=== PATIENT | female | born 1965 | race Hispanic/Latino ===

== ENCOUNTER 2024-04-01 12:15 | Emergency (ER) | payer MEDICAID, OTHER ==
[~2024-04-01] VITALS: Ht 149.9 cm; Wt 81.6 kg
[2024-04-01 12:48] LABS: BASOPHILS # (AUTO) 0.03 K/uL (0.00-0.20); BASOPHILS % (AUTO) 0.3 % (0.0-5.0); EOSINOPHILS # (AUTO) 0.04 K/uL (0.00-0.70); EOSINOPHILS % (AUTO) 0.4 % (0.0-8.0); HEMATOCRIT 35.3 % (36-48); IMMATURE GRANULOCYTE ABSOLUTE 0.03 K/uL (0-1); LYMPHOCYTES # (AUTO) 1.7 K/uL (1.0-4.8); LYMPHOCYTES % (AUTO) 18.8 % (21.0-51.0); MEAN CORPUSCULAR HEMOGLOBIN 29.8 pg (27.0-33.0); MEAN CORPUSCULAR HGB CONC 33.7 g/dL (32.0-36.0); MEAN CORPUSCULAR VOLUME 88.5 fL (79-99); MONOCYTES # (AUTO) 0.4 K/uL (0.1-1.0); MONOCYTES % (AUTO) 4.9 % (3.0-13.0); NEUTROPHILS # (AUTO) 6.7 K/uL (1.8-7.7); NEUTROPHILS % (AUTO) 75.3 % (40.0-77.0); PLATELET COUNT (AUTO) 158 K/uL (130-400); RED BLOOD CELL COUNT(AUTO) 3.99 MIL/uL (4.00-5.50); RED CELL DISTRIBUTION WIDTH 13.7 % (11.0-15.5); WHITE BLOOD COUNT (AUTO) 8.9 K/uL (4.8-10.8)
[2024-04-01 12:57] LABS: CREATININE 0.9 mg/dL (0.5-1.0); MAGNESIUM 1.1 mg/dL (1.80-2.40); POTASSIUM 3.8 mmol/L (3.5-5.1)
[2024-04-01] MEDS: acetaMINOPHEN 500 MG TABLET PO ONE (12:59)
[2024-04-01] MEDS: ketOROlac 60 MG VIAL (30MG/ML) IM ONE (13:00)
[2024-04-01 16:27] VITALS: BP 157/76; PULSE 88; RESP 16; TEMP 98.4; O2SAT 98
== END 2024-04-01 17:07 | disposition home or self-care (01) ==
LOC: EDH 12:15
DX: S13.4XXA Sprain of ligaments of cervical spine, initial encounter (principal); S00.03XA Contusion of scalp, initial encounter; S70.01XA Contusion of right hip, initial encounter; S80.01XA Contusion of right knee, initial encounter; E86.0 Dehydration; E11.65 Type 2 diabetes mellitus with hyperglycemia; F41.9 Anxiety disorder, unspecified; F32.A Depression, unspecified; E11.9 Type 2 diabetes mellitus without complications; K21.9 Gastro-esophageal reflux disease without esophagitis; F20.9 Schizophrenia, unspecified; Z88.8 Allergy status to other drugs, medicaments and biological substances; W18.39XA Other fall on same level, initial encounter; Y93.89 Activity, other specified; Y92.89 Other specified places as the place of occurrence of the external cause; Y99.8 Other external cause status
CPT/HCPCS: 99285; 70450; 83735; 84484; 80048; 85025; 36415; 73562; 72100; 72170; 72125; 96372; 93005; J1885

== ENCOUNTER 2024-04-02 10:48 | Emergency (ER) | payer MEDICAID ==
[~2024-04-02] VITALS: Ht 162.6 cm; Wt 99.8 kg
[2024-04-02] MEDS: ketOROlac 60 MG VIAL (30MG/ML) IM ONE (11:40)
[2024-04-02 12:21] VITALS: BP 123/76; PULSE 88; RESP 14; TEMP 98.1; O2SAT 96
== END 2024-04-02 15:01 | disposition home or self-care (01) ==
LOC: EDH 10:48
DX: S40.012A Contusion of left shoulder, initial encounter (principal); M79.622 Pain in left upper arm; E11.9 Type 2 diabetes mellitus without complications; F31.9 Bipolar disorder, unspecified; K21.9 Gastro-esophageal reflux disease without esophagitis; F20.9 Schizophrenia, unspecified; F41.9 Anxiety disorder, unspecified; W01.0XXA Fall on same level from slipping, tripping and stumbling without subsequent striking against object, initial encounter; Y93.89 Activity, other specified; Y92.89 Other specified places as the place of occurrence of the external cause; Y99.8 Other external cause status
CPT/HCPCS: 99284; 73060; 73030; 96372; J1885

== ENCOUNTER 2024-04-08 14:42 | Inpatient (IN) | payer MEDICAID ==
[~2024-04-08] VITALS: Ht 157.5 cm; Wt 82.7 kg
[2024-04-08 16:04] LABS: BASOPHILS # (AUTO) 0.02 K/uL (0.00-0.20); BASOPHILS % (AUTO) 0.2 % (0.0-5.0); EOSINOPHILS # (AUTO) 0.02 K/uL (0.00-0.70); EOSINOPHILS % (AUTO) 0.2 % (0.0-8.0); HEMATOCRIT 45.3 % (36-48); IMMATURE GRANULOCYTE ABSOLUTE 0.04 K/uL (0-1); LYMPHOCYTES # (AUTO) 1.2 K/uL (1.0-4.8); LYMPHOCYTES % (AUTO) 11.2 % (21.0-51.0); MEAN CORPUSCULAR HEMOGLOBIN 30.6 pg (27.0-33.0); MEAN CORPUSCULAR HGB CONC 33.6 g/dL (32.0-36.0); MEAN CORPUSCULAR VOLUME 91.3 fL (79-99); MONOCYTES # (AUTO) 0.7 K/uL (0.1-1.0); NEUTROPHILS # (AUTO) 9.1 K/uL (1.8-7.7); PLATELET COUNT (AUTO) 235 K/uL (130-400); RED BLOOD CELL COUNT(AUTO) 4.96 MIL/uL (4.00-5.50); RED CELL DISTRIBUTION WIDTH 14.4 % (11.0-15.5); WHITE BLOOD COUNT (AUTO) 11.1 K/uL (4.8-10.8)
[2024-04-08 16:30] LABS: APPEARANCE,URINE CLOUDY (CLEAR); BILIRUBIN,URINE 0.5 mg/dL (NEGATIVE); COLOR,URINE YELLOW (YELLOW); GLUCOSE, URINE (UA) >=1000 mg/dL (NEGATIVE); KETONES,URINE 150 mg/dL (NEGATIVE); LEUKOCYTE ESTERASE ,URINE 500 Leu/uL (NEGATIVE); NITRATE,URINE NEGATIVE (NEGATIVE); PH,URINE 5.5 (5.0-8.0); PROTEIN,URINE 50 mg/dL (NEGATIVE); UROBILINOGEN,URINE 3 mg/dL (0.2-1.0)
[2024-04-08 16:31] LABS: ADD UA MICROSCOPIC YES
[2024-04-08 16:37] LABS: BACTERIA,URINE RARE /HPF (None Seen); MUCUS,URINE RARE LPF (None Seen); RBC,URINE 51-100 /HPF (0-1); SQUAMOUS EPITHELIAL CELL,UR RARE /HPF (0-2); UNCLASSIFIED CRYSTAL 2 /HPF (None Seen); WBC,URINE 26-50 /HPF (0-1); YEAST,URINE BUDDING MOD /HPF (None Seen)
[2024-04-08] MEDS: 0.9%NACL 1000ML 1,000 ML IV ONE (16:43)
[2024-04-08 16:48] LABS: CREATININE 1.5 mg/dL (0.5-1.0); POTASSIUM 4.6 mmol/L (3.5-5.1)
[2024-04-08 17:45] LABS: ABG BASE EXCESS -10.6 mmol/L (-2.0-3.0); ABG HCO3 13.4 mmol/L (21.0-28.0); ABG OXYGEN SATURATION 96.2 % (94.0-98.0); ABG PCO2 26 mmHg (32-45); ABG PH 7.331 (7.350-7.450); CARBON MONOXIDE 0.6 % (0.5-1.5); DEVICE COMMENT RR OSCAR RN; HHb 3.8; PO2, ARTERIAL BG 92.5 mmHg (83.0-108.0); VENT MODE, BG RA (ROOM AIR)
[2024-04-08] MEDS: cefTRIAXone 1G VIAL IVPB ONE (18:48)
[2024-04-08] MEDS: dexaMETHasone SOD PHOSPHATE 4 MG/ML 1ML VIAL IV ONE (19:56)
[2024-04-08] MEDS: INSULIN REGULAR, HUMAN 3ML 100 UNIT in 0.9%NACL 100ML 100 ML IV SCH (20:24)
[2024-04-08] MEDS ORDERED: DEXTROSE 5 %-0.45 % NACL 1,000 ML IV SCH (20:30)
[2024-04-08] MEDS ORDERED: ondanSETRON 4MG INJ IV PRN (20:30)
[2024-04-08] MEDS ORDERED: PoTASSium chloRIDE 20MEQ/10ML 20 MEQ in 0.9%NACL 1000ML 1,000 ML IV SCH (20:30)
[2024-04-08] MEDS ORDERED: cefTRIAXone 1G VIAL 1 GM in 0.9%NACL 50ML 50 ML IV SCH (21:00)
[2024-04-08] MEDS: cefTRIAXone 1G VIAL IVPB SCH (21:00)
[2024-04-08] MEDS: FAMOTIDINE 20MG VIAL IV SCH (21:01)
[2024-04-08] MEDS: LACTATED RINGERS 1000ML 1,000 ML IV ONE (21:02)
[2024-04-08 21:17] LABS: CREATININE 1.5 mg/dL (0.5-1.0); POTASSIUM 4.5 mmol/L (3.5-5.1)
[2024-04-08] MEDS: 0.9%NACL 1000ML 1,000 ML IV SCH (21:39)
[2024-04-08] MEDS: D5W-1/2 NS/20MEQ KCL 1,000 ML IV SCH (22:42)
[2024-04-08 22:51] LABS: SARS-CoV-2, RNA, NAAT NEGATIVE SARS CoV-2 (NEGATIVE)
[2024-04-08 22:54] LABS: INFLUENZA TYPE A Negative For Type A (NEGATIVE); INFLUENZA TYPE B Negative For Type B (NEGATIVE)
[2024-04-09] VITALS (57 sets, daily range): BP systolic 97–141; BP diastolic 34–96; PULSE 90–111; RESP 13–29; TEMP 97.6–98.2; O2SAT 96–98
[2024-04-09 01:09] LABS: CREATININE 1.3 mg/dL (0.5-1.0); POTASSIUM 4.6 mmol/L (3.5-5.1)
[2024-04-09] MEDS: NS-20 MEQ KCL 1000ML 1,000 ML IV SCH (03:31)
[2024-04-09] MEDS: dexaMETHasone SOD PHOSPHATE 4 MG/ML 1ML VIAL IV ONE (04:55)
[2024-04-09 05:43] LABS: BASOPHILS # (AUTO) 0.01 K/uL (0.00-0.20); BASOPHILS % (AUTO) 0.1 % (0.0-5.0); HEMATOCRIT 35.3 % (36-48); IMMATURE GRANULOCYTE ABSOLUTE 0.03 K/uL (0-1); LYMPHOCYTES # (AUTO) 0.6 K/uL (1.0-4.8); LYMPHOCYTES % (AUTO) 8.4 % (21.0-51.0); MEAN CORPUSCULAR HEMOGLOBIN 30.3 pg (27.0-33.0); MEAN CORPUSCULAR HGB CONC 33.7 g/dL (32.0-36.0); MEAN CORPUSCULAR VOLUME 89.8 fL (79-99); MONOCYTES # (AUTO) 0.1 K/uL (0.1-1.0); MONOCYTES % (AUTO) 1.4 % (3.0-13.0); NEUTROPHILS # (AUTO) 6.9 K/uL (1.8-7.7); NEUTROPHILS % (AUTO) 89.7 % (40.0-77.0); PLATELET COUNT (AUTO) 184 K/uL (130-400); RED BLOOD CELL COUNT(AUTO) 3.93 MIL/uL (4.00-5.50); RED CELL DISTRIBUTION WIDTH 14.3 % (11.0-15.5); WHITE BLOOD COUNT (AUTO) 7.7 K/uL (4.8-10.8)
[2024-04-09 06:28] LABS: ALBUMIN 2.7 g/dL (3.5-5.0); BILIRUBIN,TOTAL 0.5 mg/dL (0.2-1.0); CREATININE 1.1 mg/dL (0.5-1.0); MAGNESIUM 1.4 mg/dL (1.80-2.40); POTASSIUM 3.9 mmol/L (3.5-5.1); THYROID STIMULATING HORMONE 0.86 uIU/mL (0.36-3.74); TOTAL PROTEIN, SERUM 6.9 g/dL (6.0-8.3)
[2024-04-09 06:34] LABS: HEMOGLOBIN A1C 9.7 % (4.0-6.0)
[2024-04-09] MEDS: MAGNESIUM 2GM PREMIX 50ML 50 ML IV SCH (06:40)
[2024-04-09 08:50] LABS: POTASSIUM 4.2 mmol/L (3.5-5.1)
[2024-04-09] MEDS: 0.9%NACL 1000ML 1,000 ML IV ONE (12:30)
[2024-04-09 12:45] LABS: CREATININE 1.1 mg/dL (0.5-1.0)
[2024-04-09] MEDS: INSULIN REGULAR, HUMAN 3ML 100 UNIT in 0.9%NACL 100ML 100 ML IV SCH (15:58)
[2024-04-09] MEDS: ENOXAPARIN SODIUM 40 MG/0.4 ML SYRINGE SQ SCH (17:50)
[2024-04-09] MEDS: INSULIN GLARgine 100 UNITS/ML 10 ML VIAL SQ SCH (17:51)
[2024-04-09] MEDS: ASPIRIN 81 MG EC TAB PO SCH (21:13)
[2024-04-09] MEDS: atorVAStatin 40 MG TABLET PO SCH (21:13)
[2024-04-09] MEDS: CEFTRIAXONE 2GM VIAL IVPB SCH (21:14)
[2024-04-09] MEDS: INSULIN humuLIN R 100 UNIT/ML 3ML SQ SCH (22:13)
[2024-04-09] MEDS: 0.9%NACL 1000ML 1,000 ML IV SCH (23:45)
[2024-04-10] VITALS (11 sets, daily range): BP systolic 97–131; BP diastolic 54–76; PULSE 78–102; RESP 10–27; TEMP 97.6–98.4; O2SAT 97
[2024-04-10] MEDS ORDERED: ROSU10TA72 PO (01:02)
[2024-04-10] MEDS ORDERED: ACET-2123 PO (01:02)
[2024-04-10] MEDS ORDERED: DIVA-78 PO (01:02)
[2024-04-10] MEDS ORDERED: GABA-534 PO (01:02)
[2024-04-10] MEDS ORDERED: METF-446 PO (01:02)
[2024-04-10] MEDS ORDERED: MIRT-93 PO (01:02)
[2024-04-10] MEDS ORDERED: ARIP15TA66 PO (01:02)
[2024-04-10] MEDS ORDERED: TRAZ-185 PO (01:02)
[2024-04-10] MEDS ORDERED: ACET500C4 PO (01:07)
[2024-04-10] MEDS ORDERED: PANT40TA54 PO (01:07)
[2024-04-10] MEDS ORDERED: [UNRECOGNIZED DRUG - CODE] TD (02:10)
[2024-04-10 04:11] LABS: BASOPHILS # (AUTO) 0.01 K/uL (0.00-0.20); BASOPHILS % (AUTO) 0.1 % (0.0-5.0); IMMATURE GRANULOCYTE ABSOLUTE 0.04 K/uL (0-1); LYMPHOCYTES # (AUTO) 1.1 K/uL (1.0-4.8); MEAN CORPUSCULAR HEMOGLOBIN 30.2 pg (27.0-33.0); MEAN CORPUSCULAR HGB CONC 33.9 g/dL (32.0-36.0); MEAN CORPUSCULAR VOLUME 89.1 fL (79-99); MONOCYTES # (AUTO) 0.4 K/uL (0.1-1.0); MONOCYTES % (AUTO) 4.8 % (3.0-13.0); NEUTROPHILS % (AUTO) 81.6 % (40.0-77.0); PLATELET COUNT (AUTO) 176 K/uL (130-400); RED BLOOD CELL COUNT(AUTO) 3.48 MIL/uL (4.00-5.50); RED CELL DISTRIBUTION WIDTH 14.2 % (11.0-15.5); WHITE BLOOD COUNT (AUTO) 8.5 K/uL (4.8-10.8)
[2024-04-10 04:26] LABS: ALBUMIN 2.2 g/dL (3.5-5.0); BILIRUBIN,TOTAL 0.3 mg/dL (0.2-1.0); CREATININE 0.8 mg/dL (0.5-1.0); MAGNESIUM 1.5 mg/dL (1.80-2.40); POTASSIUM 3.5 mmol/L (3.5-5.1); TOTAL PROTEIN, SERUM 5.8 g/dL (6.0-8.3)
[2024-04-10] MEDS ORDERED: GADOTERATE MEGLUMINE 10 MMOL/20 ML VIAL IV ONE (13:20)
[2024-04-11] VITALS: BP 126/72; PULSE 83; RESP 22; TEMP 97.5
[2024-04-11 03:45] LABS: BASOPHILS # (AUTO) 0.03 K/uL (0.00-0.20); BASOPHILS % (AUTO) 0.5 % (0.0-5.0); EOSINOPHILS # (AUTO) 0.08 K/uL (0.00-0.70); EOSINOPHILS % (AUTO) 1.3 % (0.0-8.0); HEMATOCRIT 34.8 % (36-48); IMMATURE GRANULOCYTE ABSOLUTE 0.02 K/uL (0-1); LYMPHOCYTES # (AUTO) 2.4 K/uL (1.0-4.8); LYMPHOCYTES % (AUTO) 40.7 % (21.0-51.0); MEAN CORPUSCULAR HEMOGLOBIN 29.9 pg (27.0-33.0); MEAN CORPUSCULAR HGB CONC 33.9 g/dL (32.0-36.0); MEAN CORPUSCULAR VOLUME 88.3 fL (79-99); MONOCYTES # (AUTO) 0.4 K/uL (0.1-1.0); NEUTROPHILS # (AUTO) 3.1 K/uL (1.8-7.7); NEUTROPHILS % (AUTO) 51.2 % (40.0-77.0); PLATELET COUNT (AUTO) 172 K/uL (130-400); RED BLOOD CELL COUNT(AUTO) 3.94 MIL/uL (4.00-5.50)
[2024-04-11 03:57] LABS: CREATININE 0.9 mg/dL (0.5-1.0)
[2024-04-11 04:00] VITALS: BP 125/70; PULSE 80; RESP 22; TEMP 97.8
[2024-04-11 04:03] LABS: POTASSIUM 3.1 mmol/L (3.5-5.1)
[2024-04-11 08:00] VITALS: BP 131/59; PULSE 82; RESP 20; TEMP 97.6
[2024-04-11] MEDS ORDERED: PoTASSium chloRIDE 20MEQ/100ML 100 ML IV PRN (10:00)
[2024-04-11] MEDS: PoTASSium chloRIDE 20MEQ ER 20 MEQ ERTAB PO PRN (10:01)
[2024-04-11 12:00] VITALS: BP 126/59; PULSE 56; RESP 20; TEMP 97.8
[2024-04-11] MEDS: dexaMETHasone SOD PHOSPHATE 4 MG/ML 1ML VIAL IVP SCH (14:44)
[2024-04-11] MEDS: PoTASSium chl 10% ELIXIR 20MEQ 20 MEQ/15 ML UDCUP PO PRN (14:46)
[2024-04-11 16:00] VITALS: BP 134/83; PULSE 89; RESP 20; TEMP 97.8
[2024-04-11] MEDS: INSULIN GLARgine 100 UNITS/ML 10 ML VIAL SQ SCH (17:07)
== END 2024-04-11 17:50 | disposition short-term general hospital (02) | DRG 469 ==
LOC: EDH 14:42 → EDHIP 14:43 → 2CV 04-09 01:45 → 2BH 04-10 06:52 → 4CH 04-10 11:04
PROVIDERS: ADMIT Internal Medicine; ATTEND Internal Medicine
DX: N17.0 Acute kidney failure with tubular necrosis (principal); G93.6 Cerebral edema; J96.01 Acute respiratory failure with hypoxia; G92.8 Other toxic encephalopathy; C79.32 Secondary malignant neoplasm of cerebral meninges; I50.9 Heart failure, unspecified; E86.0 Dehydration; J44.1 Chronic obstructive pulmonary disease with (acute) exacerbation; F20.9 Schizophrenia, unspecified; F31.9 Bipolar disorder, unspecified; F41.9 Anxiety disorder, unspecified; K21.9 Gastro-esophageal reflux disease without esophagitis; G40.909 Epilepsy, unspecified, not intractable, without status epilepticus; R29.6 Repeated falls; S80.212A Abrasion, left knee, initial encounter; E86.1 Hypovolemia; E66.9 Obesity, unspecified; E78.5 Hyperlipidemia, unspecified; Z68.32 Body mass index [BMI] 32.0-32.9, adult; Z88.1 Allergy status to other antibiotic agents; Y93.89 Activity, other specified; Y92.89 Other specified places as the place of occurrence of the external cause; Y99.8 Other external cause status; Z86.73 Personal history of transient ischemic attack (TIA), and cerebral infarction without residual deficits
CPT/HCPCS: 36415; 36600; 70450; 70553; 71045; 72125; 72190; 73030; 80048; 80053; 81001; 82010; 82435; 82550; 82803; 82947; 82948; 83036; 83605; 83735; 84132; 84145; 84295; 84443; 85018; 85025; 87040; 87086; 87635; 87804; 93005; G0378; J0696; J1100; J1650; J1815; J3475; J3480; J3490; J7030; J7120; A9575